=== PATIENT | male | born 1950 | race Caucasian/White ===

== ENCOUNTER 2016-03-05 09:02 | Outpatient (CLI) | payer MEDICARE, OTHER | END 2016-03-05 09:03 | disposition home or self-care (01) | DX: B18.2 Chronic viral hepatitis C (principal) ==

== ENCOUNTER 2017-04-04 07:10 | Outpatient (CLI) | payer MEDICARE, OTHER ==
[2017-04-04 13:40] LABS: ALBUMIN 4.7 g/dL (3.2-5.5); ALBUMIN/GLOBULIN RATIO 1.8 (1.0-2.2); ALKALINE PHOSPHATASE 31 IU/L (42-121); ALT ALANINE AMINOTRANSFERASE 14 IU/L (10-60); AST ASPARTATE AMINOTRANSFERASE 19 IU/L (10-42); BILIRUBIN,TOTAL 1.1 mg/dL (0.2-1.0); BUN - BLOOD UREA NITROGEN 14 mg/dL (6-20); CALCIUM 8.9 mg/dL (8.5-10.3); CARBON DIOXIDE - CO2 24 mmol/L (21-32); CHLORIDE 105 mmol/L (101-111); CHOL/HDL RATIO 3.9 (<5.0); CHOLESTEROL 208 mg/dL; CREATININE 0.8 mg/dL (0.6-1.2); GFR - MDRD 96 (>89); GLUCOSE 92 mg/dL (70-100); HDL CHOLESTEROL 54 mg/dL; LDL CHOLESTEROL,CALCULATED 138 mg/dL; LDL/HDL RATIO 2.6 (<3.6); SODIUM 137 mmol/L (135-145); TOTAL PROTEIN 7.3 g/dL (6.7-8.2); VLDL CHOLESTEROL 16 mg/dL
[2017-04-06 16:41] LABS: HCV RNA QNT <1.18 NOT DETECTED Log IU/mL (NOT DETECTED); HCV RNA QUANT RT PCR <15 NOT DETECTED IU/mL (NOT DETECTED)
== END 2017-04-04 07:11 | disposition home or self-care (01) ==
LOC: LAB.F 07:10
PROVIDERS: ATTEND Physician Assistant
DX: B18.2 Chronic viral hepatitis C (principal)
CPT/HCPCS: 36415; 80053; 80061; 87522; G0103; 83721; 84153

== ENCOUNTER 2017-04-07 08:48 | Outpatient (CLI) | payer MEDICARE, OTHER ==
--- NOTE | 2017-04-07 17:11 | Ultrasound Report ---
COMPLETE ABDOMINAL ULTRASOUND: 04/07/2017 CLINICAL INDICATION: Hepatitis C. COMPARISON: 12/24/2011 TECHNIQUE: Real-time scanning was performed with brand representative static images obtained. FINDINGS: The liver measures 12.1 cm. Hepatic echogenicity is heterogeneous. No intrahepatic biliary dilatation or focal parenchymal lesion is appreciated. The common bile duct measures 5 mm. The gallbladder demonstrates multiple nonshadowing polyps. No cholelithiasis, wall thickening, or pericholecystic fluid is seen. The pancreatic tail is obscured by bowel gas, but the head and body appear unremarkable. The kidneys are normal, with the right measuring 9.2 cm and the left measuring 10.6 cm. The spleen measures 12.2 cm, and appears unremarkable. The abdominal aorta is normal in caliber. The inferior vena cava is unremarkable. No free fluid is present. IMPRESSION: HETEROGENEOUS HEPATIC ECHOTEXTURE. NO FOCAL LESION. MULTIPLE GALLBLADDER WALL POLYPS, WITHOUT EVIDENCE OF CHOLELITHIASIS OR BILIARY OBSTRUCTION. TD: 04/07/2017 17:04
== END 2017-04-07 08:49 | disposition home or self-care (01) ==
LOC: DI 08:48
PROVIDERS: ATTEND Physician Assistant
DX: B18.2 Chronic viral hepatitis C (principal); K82.4 Cholesterolosis of gallbladder
CPT/HCPCS: 76700

== ENCOUNTER 2017-07-12 07:08 | Outpatient (CLI) | payer MEDICARE, OTHER ==
[2017-07-12 10:49] LABS: ALBUMIN 4.5 g/dL (3.2-5.5); ALBUMIN/GLOBULIN RATIO 1.5 (1.0-2.2); BILIRUBIN,TOTAL 1.3 mg/dL (0.2-1.0); TOTAL PROTEIN 7.6 g/dL (6.7-8.2)
== END 2017-07-12 07:09 | disposition home or self-care (01) ==
LOC: LAB.F 07:08
PROVIDERS: ATTEND Physician Assistant
DX: B18.2 Chronic viral hepatitis C (principal)
CPT/HCPCS: 36415; 80053

== ENCOUNTER 2018-10-10 09:29 | Outpatient (CLI) | payer MEDICARE, OTHER ==
--- NOTE | 2018-10-10 11:35 | Ultrasound Report ---
Reason: HEP C Procedure Date: 10/10/2018 Accession Number: [id number] / [id number] Procedure: US - Abdomen Limited CPT Code: FULL RESULT: EXAM: ABDOMEN ULTRASOUND LIMITED, RUQ EXAM DATE: 10/10/2018 10:19 AM. CLINICAL HISTORY: HEP C. For follow-up COMPARISON: ABDOMEN COMPLETE 04/07/2017 9:05 AM. TECHNIQUE: Real-time scanning was performed with static images obtained. FINDINGS: Liver: Normal in size and course and echotexture. 16.3 cm. Main portal vein flow: Hepatopetal. No focal mass lesions. Gallbladder: Multiple polyps, the largest 7 x 5 mm. No stones, wall thickening, or sonographic Pinedo's sign. Biliary System: CBD measures 5 mm. No intrahepatic or extrahepatic ductal dilatation. Free fluid: None. Right kidney: 9.8 cm. No hydronephrosis. Other: Stable ultrasound compared with 04/07/2017. IMPRESSION: No cholelithiasis or cholecystitis. Multiple gallbladder polyps. Coarse hepatic echotexture without focal mass lesion. RADIA
== END 2018-10-10 09:30 | disposition home or self-care (01) ==
LOC: DI 09:29
PROVIDERS: ATTEND Internal Medicine
DX: B18.2 Chronic viral hepatitis C (principal); K82.4 Cholesterolosis of gallbladder
CPT/HCPCS: 76705

== ENCOUNTER 2018-10-11 07:08 | Outpatient (CLI) | payer MEDICARE, OTHER ==
[2018-10-11 10:12] LABS: BASOPHILS % (AUTO) 0.9 %; EOSINOPHILS # (AUTO) 0.1 10^3/uL (0.0-0.7); EOSINOPHILS % (AUTO) 2.8 %; LYMPHOCYTES # (AUTO) 1.1 10^3/uL (1.5-3.5); LYMPHOCYTES % (AUTO) 24.4 %; MEAN CORPUSCULAR HEMOGLOBIN 31.9 pg (27.0-31.0); MEAN CORPUSCULAR HGB CONC 34.7 g/dL (32.0-36.0); MEAN PLATELET VOLUME 10.4 fL (7.4-11.4); MONOCYTES # (AUTO) 0.4 10^3/uL (0.0-1.0); NEUTROPHILS # (AUTO) 2.7 10^3/uL (1.5-6.6); NEUTROPHILS % (AUTO) 62.9 %; PLT - PLATELET COUNT 187 10^3/uL (130-450); RED BLOOD COUNT 4.39 10^6/uL (4.70-6.10); RED CELL DISTRIBUTION WIDTH 13.2 % (12.0-15.0); WHITE BLOOD COUNT 4.3 x10^3/uL (4.8-10.8)
[2018-10-11 10:20] LABS: ALBUMIN 4.1 g/dL (3.2-5.5); ALBUMIN/GLOBULIN RATIO 1.3 (1.0-2.2); ALKALINE PHOSPHATASE 35 IU/L (42-121); ALT ALANINE AMINOTRANSFERASE 13 IU/L (10-60); AST ASPARTATE AMINOTRANSFERASE 20 IU/L (10-42); BILIRUBIN,TOTAL 1.2 mg/dL (0.2-1.0); BUN - BLOOD UREA NITROGEN 15 mg/dL (6-20); CALCIUM 8.9 mg/dL (8.5-10.3); CARBON DIOXIDE - CO2 25 mmol/L (21-32); CHLORIDE 104 mmol/L (101-111); CHOL/HDL RATIO 3.1 (<5.0); CHOLESTEROL 200 mg/dL; CREATININE 0.9 mg/dL (0.6-1.2); GFR - MDRD 83 (>89); GLUCOSE 91 mg/dL (70-100); HDL CHOLESTEROL 65 mg/dL; LDL CHOLESTEROL,CALCULATED 123 mg/dL; LDL/HDL RATIO 1.9 (<3.6); SODIUM 138 mmol/L (135-145); TOTAL PROTEIN 7.2 g/dL (6.7-8.2); VLDL CHOLESTEROL 12 mg/dL
[2018-10-11 10:25] LABS: HB2 TOTAL 14.2 g/dL; HEMOGLOBIN A1C 0.52 g/dL; HEMOGLOBIN A1C % 5.5 % (4.6-6.2)
[2018-10-13 19:26] LABS: HCV RNA QNT <1.18 NOT DETECTED Log IU/mL (NOT DETECTED); HCV RNA QUANT RT PCR <15 NOT DETECTED IU/mL (NOT DETECTED)
== END 2018-10-11 07:09 | disposition home or self-care (01) ==
LOC: LAB.S 07:08
PROVIDERS: ATTEND Internal Medicine
DX: B18.2 Chronic viral hepatitis C (principal); Z79.899 Other long term (current) drug therapy; Z82.49 Family history of ischemic heart disease and other diseases of the circulatory system; Z13.6 Encounter for screening for cardiovascular disorders; R73.01 Impaired fasting glucose; Z12.5 Encounter for screening for malignant neoplasm of prostate
CPT/HCPCS: 36415; 80061; 83036; 87522; G0103; 80053; 83721; 84153; 84443; 85025

== ENCOUNTER 2018-10-28 11:28 | Emergency (ER) | payer MEDICARE, OTHER ==
[2018-10-28 11:36] VITALS: BP 138/76
--- NOTE | 2018-10-28 11:47 | ED Physician Documentation ---
PD HPI LOWER EXT INJURY - Stated complaint Stated Complaint: RT LOWER LEG CHECK - Chief complaint Chief Complaint: Ext Problem - History obtained from History obtained from: Patient - History of Present Illness PD HPI LOW EXT INJURY LOCATION: Right, Lower leg Type of injury: Other (he went through a metal detector yesterday and it signaled that he had metal in his right lower leg (had hand detector wand over the area and signaled). He is concerned about that, as he does not know of any metal in leg. Also he is concerned about DVT in leg due to some travel, and he wonders if the iron in a blood clot could trigger a metal detector (I told him it is a different form, not elemental iron in blood).). No: Fall, Twist Timing - onset: Yesterday Worsened by: No: Moving, Palpating Associated symptoms: No: Weakness, Numbness, Swelling, Discolored Recently seen: Not recently seen Review of Systems Skin: denies: Abrasion (s), Laceration (s) Musculoskeletal: denies: Extremity pain, Extremity swelling PD PAST MEDICAL HISTORY - Past Medical History Past Medical History: No Other Past Medical History: no cancer, recent surgery, recent immobility, nor any FH of clots, nor prior clots himself. - Past Surgical History Past Surgical History: No - Present Medications Home Medications: Ambulatory Orders Medication Instructions Recorded Confirmed Ascorbic Acid [Vitamin C] 1,000 units PO DAILY 06/22/15 06/22/15 Folic Acid 800 mcg PO DAILY 06/22/15 06/22/15 Ribavirin 600 mg PO BID 06/22/15 06/22/15 Sofosbuvir [Sovaldi] 400 mg PO DAILY 06/22/15 06/22/15 - Allergies Allergies/Adverse Reactions: Allergies Allergy/AdvReac Type Severity Reaction Status Date / Time No Known Drug Allergies Allergy Verified 10/28/18 11:36 - Social History Does the pt smoke?: No Smoking Status: Never smoker Does the pt drink ETOH?: No Does the pt have substance abuse?: No - Immunizations Immunizations are current?: Yes PD ED PE NORMAL - Vitals Vital signs reviewed: Yes - General General: Alert and oriented X 3, No acute distress, Well developed/nourished - Cardiac Cardiac: RRR, No murmur - Respiratory Respiratory: Clear bilaterally - Abdomen Abdomen: Soft, Non tender - Derm Derm: Normal color, Warm and dry - Extremities Extremities: No tenderness to palpate, Normal ROM s pain, No edema, No calf tenderness / cord - Neuro Neuro: Alert and oriented X 3, No motor deficit, Normal speech Results - Vitals Vitals: Vital Signs - 24 hr 10/28/18 11:33 Temperature 36.3 C L Heart Rate 64 Respiratory 19 Rate Blood Pressure 138/76 H O2 Saturation 99 Oxygen O2 Source Room air - Rads (name of study) right tib/fib Radiology: Prelim report reviewed, EMP read contemporaneously (normal; no FB), See rad report DUplex right leg Radiology: Prelim report reviewed, See rad report (no DVT) PD MEDICAL DECISION MAKING - ED course Complexity details: reviewed results (xray without metallic FB and U/S without DVT), considered differential (he has low scoring for DVT but is concerned about it and does not trust the accuracy of the Wells score for DVT (he scores 0) ), d/w patient Departure - Departure Disposition: 01 Home, Self Care Clinical Impression: Encounter for medical screening examination Condition: Stable Record reviewed to determine appropriate education?: Yes Follow-Up: Trinity Garibay MD [Primary Care Provider] - Comments: Your x-ray does not show anything metallic and the bones look normal. Your ultrasound did not show any signs of blood clots. There is no obvious reason for the metal detector to have signaled from the leg. Discharge Date/Time: 10/28/18 14:03
--- NOTE | 2018-10-28 13:03 | XRAY Report ---
Reason: metal detector triggered on right leg yesterday Procedure Date: 10/28/2018 Accession Number: [id number] / [id number] Procedure: XR - Tib/Fib RT CPT Code: FULL RESULT: EXAM: RIGHT TIBIA/FIBULA RADIOGRAPHY EXAM DATE: 10/28/2018 12:45 PM. CLINICAL HISTORY: Metal detector triggered on right leg yesterday. COMPARISON: None. TECHNIQUE: 2 views. FINDINGS: Bones: No acute fracture or focal osseous destruction. Joints: Knee and ankle joints appear maintained. Soft Tissues: No radiopaque foreign body. IMPRESSION: No radiopaque foreign body. No acute fracture or dislocation. RADIA
--- NOTE | 2018-10-28 14:26 | Ultrasound Report ---
Reason: right lower leg tenderness Procedure Date: 10/28/2018 Accession Number: [id number] / [id number] Procedure: US - Duplex Ext Veins Right CPT Code: FULL RESULT: EXAM: RIGHT LOWER EXTREMITY VENOUS ULTRASOUND EXAM DATE: 10/28/2018 01:50 PM. CLINICAL HISTORY: Right lower leg tenderness. COMPARISON: None. TECHNIQUE: Real-time sonographic vascular imaging was performed by the call center rn through the lower extremity utilizing both color-flow and Doppler spectral analysis. Multiple medical office representative static images were saved for review. FINDINGS: Common Femoral Vein (CFV): Normal. CFV-GSV Junction: Normal. Profunda Femoral Vein (PFV): Normal. Femoral Vein (FV) Prox: Normal. Femoral Vein (FV) Mid: Normal. Femoral Vein (FV) Dist: Normal. Popliteal Vein: Normal. Posterior Tibial Veins: Normal. Peroneal Veins: Normal. Other: None. IMPRESSION: 1. No evidence of right lower extremity deep venous thrombosis. RADIA
== END 2018-10-28 14:03 | disposition home or self-care (01) ==
LOC: ED 11:28
DX: Z71.1 Person with feared health complaint in whom no diagnosis is made (principal)
CPT/HCPCS: 99281; 99284

== ENCOUNTER 2019-10-16 07:08 | Outpatient (CLI) | payer MEDICARE, OTHER ==
[2019-10-16 15:12] LABS: BASOPHILS % (AUTO) 0.9 %; EOSINOPHILS # (AUTO) 0.1 10^3/uL (0.0-0.7); EOSINOPHILS % (AUTO) 2.3 %; HGB - HEMOGLOBIN 15.2 g/dL (14.0-18.0); LYMPHOCYTES # (AUTO) 1.2 10^3/uL (1.5-3.5); LYMPHOCYTES % (AUTO) 28.2 %; MEAN CORPUSCULAR HEMOGLOBIN 31.9 pg (27.0-31.0); MEAN CORPUSCULAR HGB CONC 33.5 g/dL (32.0-36.0); MEAN CORPUSCULAR VOLUME 95.4 fL (80.0-94.0); MEAN PLATELET VOLUME 10.2 fL (7.4-11.4); MONOCYTES # (AUTO) 0.4 10^3/uL (0.0-1.0); MONOCYTES % (AUTO) 8.9 %; NEUTROPHILS # (AUTO) 2.5 10^3/uL (1.5-6.6); NEUTROPHILS % (AUTO) 59.5 %; PLT - PLATELET COUNT 224 10^3/uL (130-450); RED BLOOD COUNT 4.76 10^6/uL (4.70-6.10); RED CELL DISTRIBUTION WIDTH 12.7 % (12.0-15.0); WHITE BLOOD COUNT 4.3 x10^3/uL (4.8-10.8)
[2019-10-16 15:38] LABS: ALBUMIN 4.6 g/dL (3.2-5.5); ALBUMIN/GLOBULIN RATIO 1.6 (1.0-2.2); ALKALINE PHOSPHATASE 36 IU/L (42-121); ALT ALANINE AMINOTRANSFERASE 15 IU/L (10-60); AST ASPARTATE AMINOTRANSFERASE 18 IU/L (10-42); BILIRUBIN,TOTAL 0.9 mg/dL (0.2-1.0); BUN - BLOOD UREA NITROGEN 16 mg/dL (6-20); CALCIUM 9.1 mg/dL (8.5-10.3); CARBON DIOXIDE - CO2 28 mmol/L (21-32); CHLORIDE 102 mmol/L (101-111); CHOL/HDL RATIO 3.2 (<5.0); CHOLESTEROL 202 mg/dL; GLUCOSE 96 mg/dL (70-100); HDL CHOLESTEROL 63 mg/dL; LDL CHOLESTEROL,CALCULATED 124 mg/dL; SODIUM 139 mmol/L (135-145); TOTAL PROTEIN 7.5 g/dL (6.7-8.2); VLDL CHOLESTEROL 15 mg/dL
[2019-10-16 15:44] LABS: PSA FREE 1.019 ng/mL (0.16-2.81)
[2019-10-16 15:45] LABS: PSA TOTAL 3.826 ng/mL (0.000-2.000)
== END 2019-10-16 07:09 | disposition home or self-care (01) ==
LOC: LAB.S 07:08
PROVIDERS: ATTEND Internal Medicine
DX: N32.9 Bladder disorder, unspecified (principal); Z13.6 Encounter for screening for cardiovascular disorders; Z12.5 Encounter for screening for malignant neoplasm of prostate; N40.0 Benign prostatic hyperplasia without lower urinary tract symptoms; Z86.19 Personal history of other infectious and parasitic diseases; Z12.11 Encounter for screening for malignant neoplasm of colon; Z12.12 Encounter for screening for malignant neoplasm of rectum
CPT/HCPCS: 36415; 80053; 80061; 82274; 83721; 84153; 84154; 84443; 85025; 87902

== ENCOUNTER 2021-11-19 08:00 | Outpatient (CLI) | payer MEDICARE, OTHER ==
[2021-11-19 16:05] LABS: BASOPHILS % (AUTO) 0.8 %; EOSINOPHILS # (AUTO) 0.1 10^3/uL (0.0-0.7); EOSINOPHILS % (AUTO) 1.3 %; HCT - HEMATOCRIT 43.8 % (42.0-52.0); HGB - HEMOGLOBIN 15.1 g/dL (14.0-18.0); LYMPHOCYTES % (AUTO) 18.5 %; MEAN CORPUSCULAR HEMOGLOBIN 31.7 pg (27.0-31.0); MEAN CORPUSCULAR HGB CONC 34.5 g/dL (32.0-36.0); MEAN CORPUSCULAR VOLUME 91.8 fL (80.0-94.0); MEAN PLATELET VOLUME 10.2 fL (7.4-11.4); MONOCYTES # (AUTO) 0.4 10^3/uL (0.0-1.0); MONOCYTES % (AUTO) 7.3 %; NEUTROPHILS # (AUTO) 3.8 10^3/uL (1.5-6.6); NEUTROPHILS % (AUTO) 71.9 %; PLT - PLATELET COUNT 248 10^3/uL (130-450); RED BLOOD COUNT 4.77 10^6/uL (4.70-6.10); RED CELL DISTRIBUTION WIDTH 12.4 % (12.0-15.0); WHITE BLOOD COUNT 5.3 x10^3/uL (4.8-10.8)
[2021-11-19 16:23] LABS: ALBUMIN 4.8 g/dL (3.2-5.5); ALBUMIN/GLOBULIN RATIO 1.6 (1.0-2.2); ALKALINE PHOSPHATASE 42 IU/L (42-121); ALT ALANINE AMINOTRANSFERASE 12 IU/L (10-60); AST ASPARTATE AMINOTRANSFERASE 19 IU/L (10-42); BILIRUBIN,TOTAL 1.3 mg/dL (0.2-1.0); BUN - BLOOD UREA NITROGEN 21 mg/dL (6-20); CALCIUM 9.3 mg/dL (8.5-10.3); CARBON DIOXIDE - CO2 26 mmol/L (21-32); CHLORIDE 103 mmol/L (101-111); CHOL/HDL RATIO 3.2 (<5.0); CHOLESTEROL 225 mg/dL; CREATININE 0.9 mg/dL (0.6-1.2); GFR - MDRD 83 (>89); GLUCOSE 94 mg/dL (70-100); HDL CHOLESTEROL 71 mg/dL; LDL CHOLESTEROL,CALCULATED 144 mg/dL; SODIUM 137 mmol/L (135-145); TOTAL PROTEIN 7.8 g/dL (6.7-8.2); TRIGLYCERIDES 52 mg/dL; VLDL CHOLESTEROL 10 mg/dL
[2021-11-19 16:28] LABS: PSA TOTAL 5.446 ng/mL (0.000-2.000)
[2021-11-19 16:52] LABS: PSA FREE 1.546 ng/mL (0.16-2.81)
== END 2021-11-19 23:59 | disposition home or self-care (01) ==
LOC: LAB.R 08:00
PROVIDERS: ATTEND Internal Medicine
DX: Z00.00 Encounter for general adult medical examination without abnormal findings (principal); R97.20 Elevated prostate specific antigen [PSA]; N52.9 Male erectile dysfunction, unspecified; B19.20 Unspecified viral hepatitis C without hepatic coma; Z87.898 Personal history of other specified conditions; Z79.899 Other long term (current) drug therapy
CPT/HCPCS: 80053; 80061; 81599; 83721; 84153; 84154; 84443; 85025; 87522

== ENCOUNTER 2022-12-10 08:42 | Outpatient (CLI) | payer MEDICARE ==
--- NOTE | 2022-12-10 16:31 | Ultrasound Report ---
PROCEDURE: Aorta Screening INDICATIONS: HISTORY OF TOBACCO USE, AAA SCREENING TECHNIQUE: Real time scanning was performed of the aorta and iliac arteries, with image documentatio n. COMPARISON: Abdomen ultrasound 10/10/2018 FINDINGS: Aorta: Proximal aortic diameter measures 2.5 x 2.6 cm. Mid-aorta measures 3.4 x 3.2 cm. Midportion of aorta is difficult to evaluate secondary to overlying bowel. Distal aortic diameter is 1.9 x 2.1 c m. Iliac arteries: Right common iliac artery measures 1.0 x 1.2 cm. Left common iliac artery measures 1.5 x 1.3 cm. 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 Recommended intervals for follow-up imaging of ectatic aortas and abdominal aortic aneurysms, per ACR consensus guidelines: 2.5-2.9 cm: 5 years 3.0-3.4 cm: 3 years 3.5-3.9 cm: 2 years 4.0-4.4 cm: 1 year 4.5-4.9 cm: 6 months + endovascular referral 5.0-5.5 cm: 3-6 months + endovascular referral Reviewed by: Magaly Moon MD on 12/10/2022 4:29 PM PDT Approved by: Magaly Moon MD on 12/10/2022 4:29 PM PDT Station ID: [id number]
== END 2022-12-10 08:43 | disposition home or self-care (01) ==
LOC: DI 08:42
PROVIDERS: ATTEND Internal Medicine
DX: Z13.6 Encounter for screening for cardiovascular disorders (principal); Z87.891 Personal history of nicotine dependence

== ENCOUNTER 2023-02-11 11:24 | Outpatient (CLI) | payer MEDICARE ==
[2023-02-11 16:17] LABS: PSA TOTAL 6.078 ng/mL (0.000-2.000)
== END 2023-02-11 11:25 | disposition home or self-care (01) ==
LOC: LAB.S 11:24
PROVIDERS: ATTEND Physician Assistant Medical
DX: R97.20 Elevated prostate specific antigen [PSA] (principal)
CPT/HCPCS: 36415; 84153; 84154